=== PATIENT | male | born 1940 | race Caucasian/White ===

== ENCOUNTER 2017-02-15 14:50 | Emergency (ER) | payer MEDICARE, OTHER ==
--- NOTE | 2017-02-15 15:29 | RADIOLOGY REPORT ---
HISTORY: Right shoulder injury. Dislocation. COMPARISON: None. FINDINGS: 1 views of the shoulder obtained. A right shoulder arthroplasty is present. The proximal humeral and glenoid components are malaligned., With the humeral component overlaps superiorly with respect to t he glenoid component. No acute fracture is demonstrated. 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 IMPRESSION: Malalignment of the glenohumeral arthroplasty, with suspected dislocation. The direction of dislocati on (anterior posterior) is uncertain based on this single view. No underlying fracture. Final Electronic Signature: This report was electronically signed by Geo Naranjo MD on 02/15/2017 3:26 PM. alessio /
--- NOTE | 2017-02-15 15:52 | RADIOLOGY REPORT ---
HISTORY: Post reduction COMPARISON: Earlier today FINDINGS: 2 views of the shoulder obtained. Since earlier today, the right shoulder arthroplasty dislocation i s been reduced to anatomic alignment. No underlying fracture is demonstrated. Arthroplasty components appear well seated and intact. Moderate acromioclavicular degenerative disease is unchanged. IMPRESSION: Reduction of the right shoulder arthroplasty dislocation to normal alignment. Final Electronic Signature: This report was electronically signed by Geo Naranjo MD on 02/15/2017 3:50 PM. alessio /
--- NOTE | 2017-02-15 16:18 | ER PHYSICIAN DOCUMENTATION ---
Physician Documentation [facility] Name:Panda Dixon Age:76 yrs Sex:Male :1940 Arrival Date:02/15/2017 Time:14:50 BedTrauma-B Private MD:Sachin Davies ED, Scott Disposition: 02/15/17 16:09 Discharged to Home/Self Care. Impression: Dislocation of Prosthetic Joint. - Condition is Good. - Discharge Instructions: DISLOCATION, Other Joint. - Medical Reconciliation form form. - Follow up: Geovany Rivera MD; When: 1 week. - Problem is new. - Symptoms have improved. HPI: 02/15 16:04 This 76 yrs old Male presents to ER via Private Vehicle with complaints of sc Shoulder Injury. 16:04 The patient or guardian complains of deformity. posterior aspect of right shoulder The sc complaint affects the patient's dominant side (right). Context: The problem was sustained outdoors, at a lifting with biceps. Onset: The symptom(s)/episode began/occurred just prior to arrival. Modifying factors: the symptoms are alleviated by nothing. The patient has experienced a previous episode. Historical: - Allergies: Codeine; - Home Meds: 1. Lisinopril Oral 2. Unknown Statin - PMHx: HYPERTENSION; HIGH CHOLESTEROL; - PSHx: Retinal Detachment; Left total knee; SHOULDER SURGERY; - Tetanus: < 10 years. - Ebola Screening: : Patient denies exposure to infectious person. Patient denies travel to an Ebola-affected area in the 21 days before illness onset. . - Social history: Smoking status: Patient states was never smoker of tobacco. Patient uses alcohol on a daily basis. Patient/guardian denies using marijuana. ROS: 16:07 Constitutional: Negative for fever, chills, and weight loss. sc Eyes: Negative for injury, pain, redness, and discharge. Neck: Negative for injury, pain, and swelling. Cardiovascular: Negative for chest pain, palpitations, and edema. Skin: Negative for injury, rash, and discoloration. 16:07 Neuro: Negative for headache, weakness, numbness, tingling, and seizure. sc 16:07 MS/extremity: Positive for injury or acute deformity, decreased range of motion, pain. Exam: Constitutional: This is a well developed, well nourished patient who is awake, alert, and in no acute distress. Head/Face: Normocephalic, atraumatic. Neck: Trachea midline, no thyromegaly or masses palpated, and no cervical lymphadenopathy. Supple, full range of motion without nuchal rigidity, or vertebral point tenderness. No meningismus. Back: No spinal tenderness. No costovertebral tenderness. Full range of motion. 16:07 Skin: Warm, dry with normal turgor. Normal color with no rashes, no lesions, and no sc evidence of cellulitis. 16:07 Musculoskeletal/extremity: ROM: limited active range of motion due to pain, limited passive range of motion due to pain, Circulation is intact in all extremities. Sensation intact. with spontaneous reduction in ER and very improved exam Vital Signs: 15:00 BP 171 / 92 LA Sitting (auto/reg); Pulse 87 LA; Resp 16 S; Temp 98.3(O); Pulse Ox 91% em3 on R/A; Weight 90.72 kg (R); Height 6 ft. 0 in. (182.88 cm) (R); Pain 4/10; 15:00 Body Mass Index 27.12 (90.72 kg, 182.88 cm) em3 MDM: 14:59 Patient medically screened. sc 16:08 Differential diagnosis: Posterior dislocation without fracture. Data reviewed: vital sc signs, nurses notes, radiologic studies, and as a result, I will discharge patient. Physician consultation: Geovany Rivera MD was called at 16:08, was contacted at 16:08, regarding outpatient follow-up, next week. 02/15 15:18 Order name: SHOULDER; 1V [place] [id number] EDMS 02/15 15:29 Order name: SHOULDER; 1V RT [id number] EDMS 02/15 15:46 Order name: SHOULDER; 2V+ [place] [id number] EDMS Dispensed Medications: No medications were administered Signatures: Belgica Omalley, Napoleon Capone RN, MD MD ne
--- NOTE | 2017-02-15 16:18 | ER NURSING DOCUMENTATION ---
Nurse's Notes [facility] Name:Panda Dixon Age:76 yrs Sex:Male :1940 Arrival Date:02/15/2017 Time:14:50 BedTrauma-B Private MD:Sachin Davies Diagnosis:Dislocation of Prosthetic Joint Presentation: 02/15 14:55 Acuity: PEBBLES 2 st 15:00 Presenting complaint: Patient states: pt has a reversed right shoulder prostheses. st today he tried to picker feeder something heavy and his shoulder poped. Transition of care: Home. 15:00 Method Of Arrival: Private Vehicle st Triage Assessment: 15:06 General: Appears uncomfortable, Behavior is cooperative. Pain: Complains of pain in st posterior aspect of right shoulder Pain currently is 4 out of 10 on a pain scale. Musculoskeletal: Circulation, motion, and sensation intact pt refuses to move his right shoulder. Historical: - Allergies: Codeine; - Home Meds: 1. Lisinopril Oral 2. Unknown Statin - PMHx: HYPERTENSION; HIGH CHOLESTEROL; - PSHx: Retinal Detachment; Left total knee; SHOULDER SURGERY; - Tetanus: < 10 years. - Ebola Screening: : Patient denies exposure to infectious person. Patient denies travel to an Ebola-affected area in the 21 days before illness onset. . - Social history: Smoking status: Patient states was never smoker of tobacco. Patient uses alcohol on a daily basis. Patient/guardian denies using marijuana. Screenin:07 Infectious Disease Risk None. Abuse screen: Denies threats or abuse. Denies injuries st from another. Nutritional screening: No deficits noted. Assessment: 15:34 General: pt feels like his shoulder self reduced. . st Vital Signs: 15:00 BP 171 / 92 LA Sitting (auto/reg); Pulse 87 LA; Resp 16 S; Temp 98.3(O); Pulse Ox 91% em3 on R/A; Weight 90.72 kg (R); Height 6 ft. 0 in. (182.88 cm) (R); Pain 4/10; 15:00 Body Mass Index 27.12 (90.72 kg, 182.88 cm) em3 ED Course: 14:51 Patient arrived in ED. lm3 14:51 Sachin Davies MD is Private Physician. lm3 14:55 Triage completed. rh 14:59 Napoleon Jiang MD is Attending Physician. il 15:00 Belgica Omalley, RN is Primary Nurse. st 15:01 Valuables Remains with patient Patient has correct armband on for positive em3 identification. Bed in low position. Call light in reach. Side rails up X 1. 15:12 Port Xray Completed. hz 15:18 SHOULDER; 1[place] [id number] In Process Unspecified. EDMS 15:36 SHOULDER; 1V [place] [id number] Sent. hz 15:40 PORT XRAY COMPLETED AGAIN. hz 15:46 SHOULDER; 2V+ [place] [id number] In Process Unspecified. EDMS 16:05 Sling & swathe to right arm. st 16:08 Geovany Rivera MD is Referral Physician. il Administered Medications: No medications were administered Outcome: 16:09 Discharge ordered by . il 16:16 Discharged to home ambulatory. st 16:16 Condition: improved 16:16 Discharge instructions given to patient, significant other, Instructed on discharge instructions, follow up and referral plans. Ortho Care 16:17 Patient [address] the ED. st 02/16 16:39 Discharge F/U Call: Spoke with: spouse with permission of patient. Are you having any lc pain? no. How are you managing your pain? Did your discharge instructions answer all of your questions? yes Have you made a f/u appointment? yes Overall Care on a scale of 1-10 with 10 being the best care, you rate our care as: Other comments: NO PROBLEMS TODAY Signatures: Dispatcher [employer] EDUT Belgica Omalley RN RN st Coleman, Linda, RN RN lc Chew, Scott, MD MD il Saravanan Eagle Rachel Kinga Biggs Bernice Fletcher lm3
== END 2017-02-15 16:17 | disposition home or self-care (01) ==
LOC: ER 14:50
DX: T84.028A Dislocation of other internal joint prosthesis, initial encounter (principal); Z96.611 Presence of right artificial shoulder joint; I10 Essential (primary) hypertension; Z79.899 Other long term (current) drug therapy
CPT/HCPCS: 99283